=== PATIENT | male | born 1930 | race Caucasian/White ===

== ENCOUNTER → 2016-05-16 | Outpatient (CLI) | payer MEDICARE ==
[~2016-05-16] MED LIST: ATIVAN-DPS0.5 MG PO; COUMADIN DPS3 MG PO; LASIX20 MG PO; LEVAQUIN D750 MG/150 IV; LIPID EMULSION 20% IV; LOPRESSOR DPS100 MG PO; METRONIDAZOLE IV; NORMAL SALINE FL5 ML IV; ORGAN-I NR200 MG PO; PRAVACHOL20 MG PO; PRILOSEC DPS20 MG PO; ROBITUSSIN DM D30 ML PO; TAMBOCOR DPS50 MG PO; TESSALON PERLE100 M1 PO; TPN IV; TYLENOL DPS325 MG PO; VITAMIN B1100 MG PO; [UNRECOGNIZED DRUG - OTHER] IV
== END | disposition home or self-care (01) ==
LOC: CARD 10:00
DX: Z45.2 Encounter for adjustment and management of vascular access device (principal)